=== PATIENT | male | born 1975 | race Two or more races ===

== ENCOUNTER 2021-10-15 15:47 | Emergency (ER) | payer BC, SELFPAY ==
[2021-10-15 16:05] VITALS: BP 142/86; PULSE 72; RESP 20; TEMP 36.3; O2SAT 100
[2021-10-15] MEDS: TETANUS,DIPHTHERIA,AC PERTUSSIS ADULT 0.5 ML (ADACEL) IM (17:10)
[2021-10-15] MEDS: LIDOCAINE HCL 1% LOCAL INJ 20 ML VIAL (17:11)
--- NOTE | 2021-10-15 17:52 | ED.WOUNDLAC ---
HPI - Wound/Laceration General Chief Complaint: Wound/Laceration Stated Complaint: laceration to rt forearm Time Seen by Provider: 10/15/21 17:52 Source: patient Mode of arrival: ambulatory Limitations: no limitations History of Present Illness HPI narrative: patient presents with lacerations to his right forearm 2 distinct lacerations measuring approximately 5cm in length patient is not updated with his tetanus vaccine, has no numbness or tingling in his hand or fingers 1 of the laceration sites is gaping the other mildly gaping. Onset (ago): hour(s) Location: other ( right arm) Extremity Location: Right: arm ( 2 distinct lacerations) Place: outdoors Patient tetanus UTD: No Context: accidental Related Data Home Medications Medication Instructions Recorded Confirmed No Home Medications 10/15/21 10/15/21 Allergies Allergy/AdvReac Type Severity Reaction Status Date / Time No Known Allergies Allergy Verified 10/15/21 16:29 Review of Systems Review of Systems: All systems reviewed & are unremarkable except as noted in HPI and below PMFSH Past Medical History Medical History Patient denies medical problems Exam Const: General: no acute distress and alert Orientation/consciousness: patient oriented x3 HENMT: Head: normal to inspection Eyes: Conjunctivae: conjunctivae normal Pupils: Equal, round and reactive pupils present EOM: EOMs intact bilaterally Neck: Neck: normal visual inspection Chest: Chest palpation & inspection: normal inspection of the chest Resp: Effort & Inspection: normal respiratory effort Auscultation: clear to auscultation bilaterally Cardio: Rate: regular rate Rhythm: regular rhythm GI: GI Palp: Yes Soft to palpation Back/Spine/Pelvis: Back: no CVA tenderness Skin: General skin exam: normal color Rashes: no rashes Other: gaping laceration on his right forearm 2 distinct lacerations 1 more proximal to his forearm the other closer to his wrist gaping approximately 5cm on Neuro: General: patient oriented x3, moves all extremities and no meningeal signs Extrem: General: normal to inspection and no pedal edema Psych: Mental Status: mental status grossly normal Course Course Emergency Course: patient received sutures was given Adacel and 1% lidocaine and sutures placed in his right forearm in 2 distinct areas 1 closer to the wrist received 9 sutures and the 1 closer to his forearm received 8 sutures. Vital Signs Vital signs: Vital Signs Temperature 36.3 C L 10/15/21 16:05 Pulse Rate 72 10/15/21 16:05 Respiratory Rate 20 10/15/21 16:05 Blood Pressure 142/86 H 10/15/21 16:05 Pulse Oximetry 100 10/15/21 16:05 Temperature 36.3 C L 10/15/21 16:05 Pulse Rate 72 10/15/21 16:05 Respiratory Rate 20 10/15/21 16:05 Blood Pressure 142/86 H 10/15/21 16:05 Pulse Oximetry 100 10/15/21 16:05 Procedures Laceration Laceration 1: Date: 10/15/21 Site: upper extremity Side (If applicable): right Size (cm): 10 Description: linear Depth: simple, single layer Local Anesthetic: lidocaine 1% Amount of anesthesia used (mL): 10 ====== Skin Level ====== Skin layer closed with: vicryl Size (cm): 4-0 Number of sutures: 17 ====== Subcutaneous Layer ====== ====== Muscle Layer ====== ====== Tendon Layer ====== Critical Care Time Critical Care Time Critical Care Time: No Discharge Plan Discharge Clinical Impression: Laceration Patient Disposition: Home, Self-Care Condition: Stable Instructions: Antibiotic Form, Laceration (ED), Care For Your Stitches (ED) Additional Instructions: Advised to follow-up with some primary care are can go to an urgent care to have sutures removed after approximately 1 week Prescriptions: No Action No Home Medications RF: 0 Follow-up/Referrals:
[2021-10-15 18:30] VITALS: BP 129/70; PULSE 74; RESP 16; TEMP 36.7; O2SAT 100
== END 2021-10-15 18:15 | disposition home or self-care (01) ==
PROVIDERS: Emergency Provider Emergency Medicine
DX: S51.811A Laceration without foreign body of right forearm, initial encounter (principal); W45.8XXA Other foreign body or object entering through skin, initial encounter
CPT/HCPCS: 12004; 90471; 90715; 99282